=== PATIENT | female | born 1980 | race Caucasian/White ===

== ENCOUNTER 2016-09-23 08:53 | Emergency (ER) | payer MEDICARE, OTHER | END 2016-09-23 10:35 | disposition home or self-care (01) | LOC: ER1 08:53 | DX: S83.411A Sprain of medial collateral ligament of right knee, initial encounter (principal); Z88.8 Allergy status to other drugs, medicaments and biological substances; X50.1XXA Overexertion from prolonged static or awkward postures, initial encounter | CPT/HCPCS: 29505; 73564; 99283 ==

== ENCOUNTER 2021-12-05 18:03 | Emergency (ER) | payer MEDICARE, OTHER ==
[~2021-12-05 18:03] MED LIST: BACTRIM 400-801 EACH PO; IBUPROFEN600 MG PO; KEFLEX CAP 500500 MG PO
[2021-12-05] MEDS ORDERED: IBUPROFEN600 MG PO (20:23)
[2021-12-05] MEDS ORDERED: CEPHALEXIN500 M1 PO (20:23)
== END 2021-12-05 20:50 | disposition home or self-care (01) ==
LOC: ER1 18:03
DX: H60.12 Cellulitis of left external ear (principal); Z88.8 Allergy status to other drugs, medicaments and biological substances
CPT/HCPCS: 99282